=== PATIENT | male | born 1975 | race Caucasian/White ===

== ENCOUNTER 2023-08-20 19:29 | Outpatient (CLI) | payer OTHER, SELFPAY | END 2023-08-20 19:30 | disposition home or self-care (01) | LOC: SLEEP 19:33 | PROVIDERS: PCP Physician Assistant Medical; Visit Provider Family Medicine | DX: G47.33 Obstructive sleep apnea (adult) (pediatric) (principal) | CPT/HCPCS: 95806 ==

== ENCOUNTER 2023-10-07 19:29 | Outpatient (CLI) | payer OTHER, SELFPAY ==
--- NOTE | 2023-10-22 13:13 | W.PM.SLEEP ---
Sleep Study Details Details Interpreting Provider: [facility] Date of Sleep Study: 10/07/23 Sleep Study Details: STUDY TYPE:? Home unattended ? BMI:? 27.3 ORDERING PROVIDER:? Kevyn/[facility] INDICATION:? Concerns about sleep apnea ? SLEEP SUMMARY:? 471.3 minute RESPIRATORY SUMMARY:? AHI 52.2 Low oxygen 77 14.5% of study oxygen less than 90% Snoring 39.8% PERIODIC LIMB MOVEMENTS OF SLEEP:? Not recorded CARDIAC:? Range 54-97, mean 67.6 IMPRESSION:? Severe obstructive sleep apnea with significant desaturations RECOMMENDATION: AutoSet CPAP pressure 4-18.
== END 2023-10-07 19:30 | disposition home or self-care (01) ==
LOC: SLEEP 19:29
PROVIDERS: PCP Physician Assistant Medical; Visit Provider Otolaryngology
DX: G47.33 Obstructive sleep apnea (adult) (pediatric) (principal)
CPT/HCPCS: 95806

== ENCOUNTER 2024-06-28 11:49 | Outpatient (CLI) | payer OTHER, SELFPAY | END 2024-06-28 11:50 | disposition home or self-care (01) | LOC: NFLDREF 07-05 04:31 | PROVIDERS: PCP Physician Assistant Medical; Referring Provider Physician Assistant Medical; Visit Provider Physician Assistant Medical | DX: Z13.228 Encounter for screening for other metabolic disorders (principal); Z13.220 Encounter for screening for lipoid disorders; Z12.5 Encounter for screening for malignant neoplasm of prostate | CPT/HCPCS: 80053; 80061; G0103 ==